=== PATIENT | male | born 1975 | race Caucasian/White ===

== ENCOUNTER 2019-07-09 06:00 | Day surgery (SDC) | payer OTHER | END 2019-07-09 09:50 | disposition home or self-care (01) | LOC: AMB-ENDOS 06:00 → CIR.AMB 14:30 → ADM 14:30 | DX: K62.89 Other specified diseases of anus and rectum (principal); K57.30 Diverticulosis of large intestine without perforation or abscess without bleeding; Z12.11 Encounter for screening for malignant neoplasm of colon ==